=== PATIENT | male | born 1990 | race Hispanic/Latino ===

== ENCOUNTER 2017-08-25 03:16 | Emergency (ER) | payer OTHER ==
[2017-08-25 03:35] VITALS: BP 141/86; PULSE 102; RESP 16; TEMP 97.6; O2SAT 98
--- NOTE | 2017-08-25 03:52 | ED PDOC ---
HPI: Psych/Substance Abuse Time Seen by Provider: 08/25/17 03:31 Chief Complaint (Nursing): Alcohol Ingestion Chief Complaint (Provider): etoh History Per: Patient, EMS History/Exam Limitations: intoxication Additional History Per: EMS Additional Complaint(s): 26 y/o male brought in by EMS for acute alcohol intoxication. [place], states he [place] his train. Patient with slurred speech and unsteady gait; HPI slightly limited due to current state of intoxication. Past Medical History Reviewed: Historical Data, Nursing Documentation, Vital Signs Vital Signs: Last Vital Signs Temp 97.6 F 08/25/17 03:28 Pulse 102 H 08/25/17 03:28 Resp 16 08/25/17 03:28 BP 141/86 08/25/17 03:28 Pulse Ox 98 08/25/17 03:28 - Medical History PMH: No Chronic Diseases - Surgical History Surgical History: No Surg Hx - Family History Family History: States: No Known Family Hx - Allergies Allergies/Adverse Reactions: Allergies Allergy/AdvReac Type Severity Reaction Status Date / Time No Known Allergies Allergy Verified 08/25/17 03:31 Physical Exam - Reviewed Nursing Documentation Reviewed: Yes Vital Signs Reviewed: Yes - Physical Exam Appears: Positive for: Well, Non-toxic, No Acute Distress Head Exam: Positive for: ATRAUMATIC, NORMAL INSPECTION, NORMOCEPHALIC Skin: Positive for: Normal Color Eye Exam: Positive for: Normal appearance ENT: Positive for: Normal ENT Inspection Cardiovascular/Chest: Positive for: Regular Rate, Rhythm Respiratory: Positive for: Normal Breath Sounds Gastrointestinal/Abdominal: Positive for: Normal Exam Back: Positive for: Normal Inspection Extremity: Positive for: Normal ROM Neurologic/Psych: Positive for: Alert, Oriented - ECG O2 Sat by Pulse Oximetry: 98 Disposition - Disposition
== END 2017-08-25 07:21 | disposition home or self-care (01) ==
LOC: H.ER 03:16
DX: F10.129 Alcohol abuse with intoxication, unspecified (principal)